=== PATIENT | female | born 1995 | race Caucasian/White ===

== ENCOUNTER → 2017-07-27 | Outpatient (CLI) | payer OTHER ==
[2017-07-27 10:43] LABS: CH 32.3; CHCM 34.3; HCT 44.8 % (34.0-46.0); HDW 2.47; HGB 14.2 gm/dL (11.4-16.0); MCH 30.1 pg (25.0-35.0); MCHC 31.7 g/dL (31.0-37.0); MCV 94.7 fL (80.0-100.0); RBC 4.73 m/uL (3.80-5.40); RDW 13.3 % (11.5-15.5); WBC 10.5 k/uL (4.0-11.0)
[2017-07-27 10:57] LABS: Glucose 116 mg/dL (74-99); Non-African American GFR(MDRD) >60 (>60 ml/min/1.73 sqM)
[2017-07-27 15:51] LABS: Treponemal Ab Non-Reactive (Non-Reactive)
[2017-07-28 06:16] LABS: Toxoplasma Antibody (IgG) <3.0 IU/mL (<7.2)
== END | disposition home or self-care (01) ==
LOC: LABWHC1 09:54
PROVIDERS: ATTEND Obstetrics & Gynecology
DX: Z34.01 Encounter for supervision of normal first pregnancy, first trimester (principal); Z3A.00 Weeks of gestation of pregnancy not specified
CPT/HCPCS: 36415; 82565; 82947; 85027; 86762; 86777; 86778; 86780; 86850; 86900; 86901; 87340; 87390

== ENCOUNTER → 2017-08-12 | Outpatient (CLI) | payer OTHER | END | disposition home or self-care (01) | LOC: LABWHC1 09:53 | PROVIDERS: ATTEND Obstetrics & Gynecology | DX: Z34.01 Encounter for supervision of normal first pregnancy, first trimester (principal) | CPT/HCPCS: 36415; 82950 ==

== ENCOUNTER 2017-12-31 18:30 | Outpatient (CLI) | payer OTHER ==
[2017-12-31 18:57] LABS: Amorphous Sediment,Urine Rare /hpf; Appearance,Urine Cloudy (Clear); Bilirubin,Urine Negative (Negative); Blood,Urine Negative (Negative); Color,Urine Yellow; Glucose,Urine (UA) Negative (Negative); Ketones,Urine Negative (Negative); Leukocyte Esterase,Urine Large (Negative); Mucus,Urine Rare /hpf; Nitrite,Urine Negative (Negative); Protein,Urine Negative (Negative); RBC,Urine 2 /hpf (0-5); Specific Gravity,Urine 1.017 (1.001-1.035); Squamous Epithelial Cell,Urine 11 /hpf (0-4); Urobilinogen,Urine <2.0 mg/dL (<2.0); WBC,Urine 42 /hpf (0-5)
[2017-12-31 19:46] VITALS: BP 118/78; PULSE 86; RESP 16; TEMP 97.3
--- NOTE | 2018-01-01 10:58 | P.MSEPDOC ---
Presenting Problems - Arrival Data Date of Arrival on Unit: 12/31/17 Time of Arrival on Unit: 18:40 Mode of Transport: Ambulatory - Complaint OB-Reason for Admission/Chief Complaint: Acute Nausea/Vomiting Medical History - Information : 1 Para: 0 Term: 0 : 0 Abortions: Spontaneous or Elective: 0 Number of Living Children: 0 - Gestational Age Gestational Age by PARADISE (wks/days): 30 Weeks and 3 Days Review of Systems - Review of Systems Constitutional: No problems Breast: No problems ENT: No problems Cardiovascular: No problems Respiratory: No problems Gastrointestinal: No problems Genitourinary: No problems Musculoskeletal: No problems Neurological: No problems Skin: No problems Vital Signs - Temperature Temperature: 97.3 F Temperature Source: Temporal Artery Scan - Pulse Right Brachial Pulse Rate: 86 Pulse Assessment Method: Automatic Cuff - Respirations Respiratory Rate: 16 Oxygen Delivery Method: Room Air O2 Sat by Pulse Oximetry: 97 - Blood Pressure Right Arm Blood Pressure: 118/78 Blood Pressure Mean: 91 Blood Pressure Source: Automatic Cuff Medical Screen Scoring (Pre) - Cervical Exam Dilation: 0 cm = 0 Effacement: Exam Deferred Membranes: Intact - Uterine Contractions Frequency: N/A - Maternal Vital Signs Maternal Temperature: N/A Maternal Blood Pressure: N/A Signs of Preeclampsia: N/A - Pain Assessment Pain Scale Used: Numeric (1 - 10) Pain Intensity: 0 - Assessment Baseline FHR: 150 Heart Rate - NICHD Category: Category I (Normal) = 0 NST: Reactive Position: N/A Station: N/A - Total Score Total Score (Pre): 0 - Level of Risk Level of Risk: Low (0-5) Physician Notification (Pre) - Physician Notified Physician Notified Date: 12/31/17 Physician Notified Time: 19:27 Physician/Practitioner Notifed:: Dr. Davis Spoke With: Dr. Davis New Order Received: Yes - Notification Comment Comment: Fredis Morales agree with NATHEN Disposition - Disposition Discharge Date: 12/31/17 Discharge Time: 19:45 I agree with the RN Medical Screening Exam: Yes Risk & Benefit of care provided described in d/c instruction: Yes Diagnosis: VOMITING OF , UNSPECIFIED
== END 2017-12-31 19:45 | disposition home or self-care (01) ==
LOC: FBPOP 18:30
PROVIDERS: ATTEND Obstetrics & Gynecology
DX: O21.9 Vomiting of pregnancy, unspecified (principal); Z3A.30 30 weeks gestation of pregnancy
CPT/HCPCS: 59025; 81001; 87086; G0463; 99213

== ENCOUNTER 2018-02-14 10:31 | Inpatient (IN) | payer OTHER ==
[2018-02-14 12:49] LABS: Amorphous Sediment,Urine Moderate /hpf; Appearance,Urine Turbid (Clear); Bacteria,Urine Rare /hpf; Bilirubin,Urine Negative (Negative); Blood,Urine Small (Negative); Color,Urine Yellow; Glucose,Urine (UA) 3+ (Negative); Ketones,Urine Negative (Negative); Leukocyte Esterase,Urine Negative (Negative); Mucus,Urine Rare /hpf; Nitrite,Urine Negative (Negative); PH, Urine 7.5 (5.0-8.0); Protein,Urine Negative (Negative); RBC,Urine 3 /hpf (0-5); Specific Gravity,Urine 1.012 (1.001-1.035); Squamous Epithelial Cell,Urine 1 /hpf (0-4); Urobilinogen,Urine <2.0 mg/dL (<2.0); WBC,Urine 4 /hpf (0-5)
[2018-02-14 12:53] LABS: ALT 30 U/L (9-52); AST 22 U/L (14-36); Blood Urea Nitrogen 6 mg/dL (7-17); LDH 471 U/L (313-618); Uric Acid 3.6 mg/dL (3.7-7.4)
--- NOTE | 2018-02-14 12:55 | P.MSEPDOC ---
Presenting Problems - Arrival Data Date of Arrival on Unit: 02/14/18 Time of Arrival on Unit: 10:31 Mode of Transport: Ambulatory - Complaint OB-Reason for Admission/Chief Complaint: Possible Onset of Labor Comment: elevated heart rate in office Medical History - Information : 1 Para: 0 Term: 0 : 0 Abortions: Spontaneous or Elective: 0 Number of Living Children: 0 - Gestational Age Gestational Age by PARADISE (wks/days): 36 Weeks and 6 Days Physician Notification (Pre) - Notification Comment Comment: pt sent over from office I agree with the RN Medical Screening Exam: Yes Risk & Benefit of care provided described in d/c instruction: Yes Diagnosis: FALSE LABOR BEFORE 37 COMPLETED WEEKS OF GEST, THIRD TRI
[2018-02-14 13:00] LABS: Basophils % (A) 0 %; Eosinophils % (A) 0 %; HCT 35.5 % (34.0-46.0); HGB 11.8 gm/dL (11.4-16.0); Lymphocytes # (A) 1.3 k/uL (1.0-4.8); Lymphocytes % (A) 13 %; MCH 28.6 pg (25.0-35.0); MCHC 33.3 g/dL (31.0-37.0); Mean Platelet Volume 7.9; Monocytes # (A) 0.6 k/uL (0-1.0); Monocytes % (A) 6 %; Neutrophils # (A) 7.8 k/uL (1.3-7.7); Neutrophils % (A) 79 %; Platelet Count 200 k/uL (150-450); RBC 4.13 m/uL (3.80-5.40); RDW 12.9 % (11.5-15.5); WBC 9.8 k/uL (3.8-10.6)
--- NOTE | 2018-02-14 13:01 | P.HPOB ---
History of Present Illness H&P Date: 02/14/18 Chief Complaint: Gestational hypertension. This patient is a pleasant 22-year-old 1 para 0 female estimated date of confinement 03/08/2018 estimated gestational age 36-6/7 weeks gestation who is admitted for my office initially for evaluation of tachycardia. Patient had a Doppler done in the office which showed a heart rate of 180. Patient also was having some cramping and cervix is felt to be 4 cm dilated. Patient's subsequent sent to labor and delivery for further evaluation. heart tones here are reactive and it is obvious that the 180 was just and acceleration. There is no evidence of tachycardia here. Cervix remained unchanged after one hour of observation. Of note however the patient was found to have elevated blood pressure initially on presentation 132/ 93. Patient's blood pressure has improved in the last hour however she did have another blood pressure elevated to 131/87. Preeclampsia labs are pending at the time of this dictation. Review of Systems Gastrointestinal: Reports heartburn Genitourinary: Reports Menstruation: Reports amenorrhea Past Medical History Past Medical History: No Reported History History of Any Multi-Drug Resistant Organisms: None Reported Past Surgical History: No Surgical Hx Reported Past Anesthesia/Blood Transfusion Reactions: No Reported Reaction Past Psychological History: No Psychological Hx Reported Smoking Status: Never smoker Past Alcohol Use History: None Reported Past Drug Use History: None Reported Medications and Allergies Home Medications Medication Instructions Recorded Confirmed Type Pnv,Calcium 72/Iron/Folic Acid 1 tab PO DAILY 12/31/17 02/14/18 History [ Plus Tablet] Allergies Allergy/AdvReac Type Severity Reaction Status Date / Time No Known Allergies Allergy Verified 02/14/18 10:44 Exam - Vital Signs Vital signs: Intake and Output 02/13/18 02/14/18 02/14/18 22:59 06:59 14:59 Other: Weight 68.492 kg - OBG Physical Exam Abdomen: bowel sounds normal, no diffuse tenderness, no bruit present, no guarding noted, no hepatomegaly, no splenomegaly, no mass Vulva: both: normal Vagina: normal moisture, no discharge Cervix: no lesion (Cervix in the office was 4 cm dilated and 80% effaced.), no discharge Uterus: enlarged (Fundal height is 37 cm) Results blood work shows she is O positive, rubella immune, RPR nonreactive, hepatitis B negative, HIV nonreactive, Glucola was normal, group B strep was negative. Most recent ultrasound done on January 31 showed the baby to be vertex 6 lbs. 8 oz. at the 86th percentile. Result Diagrams: 02/14/18 12:15 Abnormal Lab Results - Last 24 Hours (Table) 02/14/18 02/14/18 Range/Units 12:01 12:15 BUN 6 L (7-17) mg/dL Creatinine 0.43 L (0.52-1.04) mg/dL Uric Acid 3.6 L (3.7-7.4) mg/dL Urine Appearance Turbid H (Clear) Urine Glucose (UA) 3+ H (Negative) Urine Blood Small H (Negative) Amorphous Sediment Moderate H (None) /hpf Urine Bacteria Rare H (None) /hpf Urine Mucus Rare H (None) /hpf Assessment and Plan (1) Gestational hypertension Narrative/Plan: This is a pleasant 22-year-old 1 para 0 female 36-6/7 weeks gestation who was initially evaluated for tachycardia however this was found not to be the case. Upon evaluation however she has had several blood pressures that were elevated. At this time I'm going to check preeclampsia blood work, admit for serial blood pressures and observation, and if persistent blood pressure elevations will proceed with delivery tomorrow at 37 weeks per current recommendations guidelines. Patient I discussed management and she understands reason for admission and possible delivery. Current Visit: Yes Status: Acute Code(s): O13.9 - GESTATIONAL HTN W/O SIGNIFICANT PROTEINURIA, UNSP TRIMESTER SNOMED Code(s): 79041019
[2018-02-14 15:37] VITALS: BMI 25.9
--- NOTE | 2018-02-14 17:23 | P.PN ---
Progress Note - Text Progress Note Date: 02/14/18 Patient's heart tones are reactive. Patient has had 2 blood pressures that were 4 hours apart that are higher than 140/90. Preeclampsia labs were normal. I discussed with the patient and her partner current recommendations for delivery at 37 weeks due to her gestational hypertension. Plan is therefore to continue continuous monitoring and proceed with delivery tomorrow morning.
[2018-02-15] MEDS ORDERED: OXYTOCIN 10 UNIT/ML 1 ML VIAL IM PRN (05:15)
[2018-02-15] MEDS ORDERED: OXYTOCIN 20 UNITS/1000 ML NS 1,000 ML IV SCH ×2 (05:15→12:25)
[2018-02-15] MEDS ORDERED: LIDOCAINE 1% (PF) 10 MG/ML (30 ML SDV) SQ PRN (05:15)
[2018-02-15] MEDS ORDERED: TERBUTALINE 1 MG/ML VIAL SQ PRN (05:15)
[2018-02-15] MEDS ORDERED: LACTATED RINGERS 1,000 ML IV SCH (05:15)
[2018-02-15] MEDS ORDERED: CARBOPROST TROMETHAMINE 250 MCG/ML 1 ML AMP IM PRN (05:15)
[2018-02-15] MEDS ORDERED: METHYLERGONOVINE 0.2 MG/ML 1 ML AMP IM PRN (05:15)
[2018-02-15 05:35] LABS: Basophils % (A) 0 %; Eosinophils % (A) 0 %; HCT 37.8 % (34.0-46.0); HGB 12.6 gm/dL (11.4-16.0); Lymphocytes # (A) 1.9 k/uL (1.0-4.8); Lymphocytes % (A) 16 %; MCH 28.9 pg (25.0-35.0); MCHC 33.4 g/dL (31.0-37.0); MCV 86.4 fL (80.0-100.0); Mean Platelet Volume 7.2; Monocytes # (A) 0.7 k/uL (0-1.0); Monocytes % (A) 5 %; Neutrophils # (A) 9.3 k/uL (1.3-7.7); Neutrophils % (A) 77 %; Platelet Count 233 k/uL (150-450); RBC 4.38 m/uL (3.80-5.40); RDW 13.1 % (11.5-15.5); WBC 12.1 k/uL (3.8-10.6)
--- NOTE | 2018-02-15 06:06 | P.PN ---
Progress Note - Text Progress Note Date: 02/15/18 Patient rested overnight. Blood pressures were stable however have begun to elevate again this morning. No blood pressures are high enough to require treatment. Plan today is to proceed with induction for gestational hypertension. I did discuss induction process.
[2018-02-15] MEDS ORDERED: fentaNYL (PF) 50 MCG/ML 5 ML AMP ONE (08:34)
[2018-02-15] MEDS ORDERED: BUPIVACAINE (PF) 0.25% 30 ML VIAL ONE (08:34)
[2018-02-15] MEDS ORDERED: SODIUM CHLORIDE 0.9% 100 ML BAG ONE (08:34)
[2018-02-15] MEDS ORDERED: BENZOCAINE/MENTHOL SPRAY 1 GM/SPRAY AEROSOL TOPICAL PRN (12:25)
[2018-02-15] MEDS ORDERED: HYDROCORTISONE 2.5% RECTAL CREAM 30 GM TUBE RECTAL PRN (12:25)
[2018-02-15] MEDS ORDERED: ZOLPIDEM 5 MG TAB PO PRN (12:25)
[2018-02-15] MEDS ORDERED: WITCH HAZEL 1 EACH MED..PAD TOPICAL PRN (12:25)
[2018-02-15] MEDS ORDERED: LANOLIN CREAM 5 GM TUBE TOPICAL PRN (12:25)
[2018-02-15] MEDS ORDERED: ACETAMINOPHEN TAB 325 MG TAB PO PRN (12:25)
[2018-02-15] MEDS ORDERED: diphenhydrAMINE 25 MG CAP PO PRN (12:25)
[2018-02-15] MEDS ORDERED: BISACODYL 10 MG SUPP RECTAL PRN (12:25)
[2018-02-15] MEDS ORDERED: diphenhydrAMINE 50 MG/ML 1 ML VIAL IVP PRN (12:25)
[2018-02-15] MEDS ORDERED: SIMETHICONE 80 MG CHEWABLE PO PRN (12:25)
--- NOTE | 2018-02-15 12:25 | P.PROBDLV ---
Vaginal Delivery Note - . Vaginal Delivery Note: Normal vaginal delivery viable male Apgars 9 and 9 delivery time is 1159 hrs. Please see dictated H&P for intimate details of this patient's admission. Brief summary this is a pleasant 22-year-old 1 para 0 female admitted to labor and delivery for evaluation of tachycardia which was found to be normal however in the process of evaluation was noted to have elevated blood pressures. Patient had 2 blood pressures a were above the except range 4 hours apart and therefore recommendation proceed with delivery at this time. Patient is 4-5 cm dilated this morning has artificial rupture membranes for clear fluid labor is induced with Pitocin per protocol. Patient progresses and does get an epidural for pain control. Patient gets to complete pushes for approximately 40 minutes. Posterior perineum is supported we have controlled delivery of 's head over the intact perineum. Mouth and nares are bulb suctioned. There is a nuchal cord which is loose and then reduced. Have delivery the anterior posterior shoulder gentle downward traction rest this 's body. This is a vigorous viable male Apgars 9 and 9 delivery time is 1159 hrs. After delivery of the infant the umbilical cord is allowed to finish pulsating and then after about a minute or so is doubly clamped cut. is late on the mother's abdomen. Placenta is then spontaneously delivered intact. Estimated blood loss is 200 mL. There is a right labial laceration which is repaired with 3-0 Vicryl and a first-degree posterior perineal laceration which is repaired with 3-0 Vicryl as well. Excellent reapproximation is noted. All counts are correct 3. There are no complications. and mother are stable delivery room.
[2018-02-15] MEDS: SENNOSIDES-DOCUSATE SODIUM 1 EACH TAB PO SCH ×2 (14:04→21:16)
[2018-02-15] MEDS: IBUPROFEN 600 MG TAB PO PRN (15:05)
[2018-02-16] MEDS: IBUPROFEN 600 MG TAB PO PRN ×3 (06:16→23:59)
--- NOTE | 2018-02-16 06:21 | P.PNOBGVD ---
Subjective - Subjective Patient reports: Reports appetite normal, Reports voiding normally, Reports pain well controlled, Reports ambulating normally : doing well Objective - Latest Vital Signs Latest vital signs: Vital Signs Temp Pulse Resp BP 02/16/18 00:00 98.1 F 89 18 125/73 02/15/18 20:00 98.4 F 96 16 135/75 02/15/18 16:00 98.5 F 88 18 134/76 02/15/18 14:47 88 16 128/73 02/15/18 14:40 86 16 127/59 02/15/18 14:22 97.6 F 111 H 16 130/77 02/15/18 13:52 111 H 16 122/74 02/15/18 13:22 106 H 16 121/78 02/15/18 13:07 102 H 16 126/63 02/15/18 12:52 97 16 132/75 02/15/18 12:37 90 16 127/65 02/15/18 12:22 97.9 F 96 16 134/69 Intake and Output 02/15/18 02/15/18 02/16/18 14:59 22:59 06:59 Intake Total 1999 Balance 1999 Intake: IV 1999 Invasive Line 1 1999 Other: # Voids 1 - Exam Lungs: bilateral: normal Chest: Normal S1, Normal S2 Extremities: Present: normal Abdomen: Present: normal appearance, soft Uterus: Present: normal, firm Assessment and Plan Assessment: Post day #1. Patient is resting without complaints. Her baby needed to go to special care nursery is on high flow but is being weaned off today. Plan is to continue routine care most likely discharge home tomorrow. (1) Gestational hypertension Current Visit: Yes Status: Acute Code(s): O13.9 - GESTATIONAL HTN W/O SIGNIFICANT PROTEINURIA, UNSP TRIMESTER SNOMED Code(s): 50983110
[2018-02-16 06:47] LABS: Basophils % (A) 0 %; Eosinophils % (A) 0 %; HCT 29.9 % (34.0-46.0); Lymphocytes # (A) 1.4 k/uL (1.0-4.8); Lymphocytes % (A) 12 %; MCH 28.4 pg (25.0-35.0); MCHC 32.6 g/dL (31.0-37.0); MCV 87.3 fL (80.0-100.0); Mean Platelet Volume 7.5; Monocytes # (A) 0.6 k/uL (0-1.0); Monocytes % (A) 5 %; Neutrophils # (A) 9.5 k/uL (1.3-7.7); Neutrophils % (A) 81 %; Platelet Count 179 k/uL (150-450); RBC 3.42 m/uL (3.80-5.40); RDW 13.6 % (11.5-15.5); WBC 11.7 k/uL (3.8-10.6)
[2018-02-16 07:11] LABS: HGB 9.7 gm/dL (11.4-16.0)
[2018-02-16] MEDS: SENNOSIDES-DOCUSATE SODIUM 1 EACH TAB PO SCH ×2 (07:51→19:26)
--- NOTE | 2018-02-17 05:53 | P.PNOBGVD ---
Subjective - Subjective Patient reports: Reports appetite normal, Reports voiding normally, Reports pain well controlled, Reports ambulating normally : doing well Objective - Latest Vital Signs Latest vital signs: Vital Signs Temp Pulse Resp BP Pulse Ox 02/17/18 00:00 98.0 F 84 16 107/73 99 02/16/18 15:28 98.1 F 76 17 123/75 02/16/18 09:20 97.9 F 115 H 16 132/75 02/16/18 07:56 98.1 F 72 16 121/72 Intake and Output 02/16/18 02/16/18 02/17/18 14:59 22:59 06:59 Other: Voiding Method Toilet - Exam Lungs: bilateral: normal Chest: Normal S1, Normal S2 Extremities: Present: normal Abdomen: Present: normal appearance, soft Uterus: Present: normal, firm - Labs Labs: Abnormal Lab Results - Last 24 Hours (Table) 02/16/18 Range/Units 06:29 WBC 11.7 H (3.8-10.6) k/uL RBC 3.42 L (3.80-5.40) m/uL Hgb 9.7 L D (11.4-16.0) gm/dL Hct 29.9 L (34.0-46.0) % Neutrophils # 9.5 H (1.3-7.7) k/uL Assessment and Plan Assessment: day #2. Patient is resting without complaints. Vital signs are stable she's afebrile. Uterus is firm nontender she's having normal lochia. My impression this is a normal post course. Plan is to continue routine care and discharge home later today. (1) Gestational hypertension Current Visit: Yes Status: Acute Code(s): O13.9 - GESTATIONAL HTN W/O SIGNIFICANT PROTEINURIA, UNSP TRIMESTER SNOMED Code(s): 82334414
--- NOTE | 2018-02-17 05:57 | P.DS ---
Providers Date of admission: 02/16/18 08:29 Expected date of discharge: 02/17/18 Attending physician: John Jay Primary care physician: Stated None - Discharge Diagnosis(es) (1) Gestational hypertension Current Visit: Yes Status: Acute Hospital Course: Please see dictated H&P for intimate details of this patient's admission. Brief summary this pleasant 22-year-old 1 para 0 female 37-0/7 weeks gestation admitted to labor and delivery for evaluation of hypertension. Patient is diagnosed with gestational hypertension induced at 37 weeks per recommendations. Patient was on have a vaginal delivery viable male . Please see dictated delivery note. day #2 she is felt to be stable for discharge home follow up with me in 6 weeks. Procedures: Induction of labor normal vaginal delivery. Patient Condition at Discharge: Good Plan - Discharge Summary New Discharge Prescriptions: New Ibuprofen [Motrin] 600 mg PO Q6HR PRN #40 tab PRN Reason: Mild Pain Or Fever >= 100.5 No Action Pnv,Calcium 72/Iron/Folic Acid [ Plus Tablet] 1 tab PO DAILY Discharge Medication List Pnv,Calcium 72/Iron/Folic Acid [ Plus Tablet] 1 tab PO DAILY 12/31/17 [ History] Ibuprofen [Motrin] 600 mg PO Q6HR PRN #40 tab 02/17/18 [Rx] Follow up Appointment(s)/Referral(s): John Jay MD [STAFF PHYSICIAN] - 6 Weeks Patient Instructions/Handouts: Vaginal Delivery (DC) Activity/Diet/Wound Care/Special Instructions: No intercourse or anything per vagina for 6 weeks. Please call if any fever, chills, excessive vaginal bleeding, and/or abdominal pain. Discharge Disposition: HOME SELF-CARE
[2018-02-17] MEDS: SENNOSIDES-DOCUSATE SODIUM 1 EACH TAB PO SCH (08:00)
[2018-02-17] MEDS: IBUPROFEN 600 MG TAB PO PRN (10:25)
[2018-02-17 12:34] VITALS: BP 128/78; PULSE 81; RESP 18; TEMP 98.9
== END 2018-02-17 13:00 | disposition home or self-care (01) | DRG 775 ==
LOC: FBPOP 10:31 → 4FBP 12:54 → OBSVTOIN 02-16 08:29
PROVIDERS: ADMIT Obstetrics & Gynecology; ATTEND Obstetrics & Gynecology
PROC: 10E0XZZ Delivery of Products of Conception, External Approach (ICD-10-PCS; principal; 2018-02-15)
PROC: 0HQ9XZZ Repair Perineum Skin, External Approach (ICD-10-PCS; 2018-02-15)
PROC: 10907ZC Drainage of Amniotic Fluid, Therapeutic from Products of Conception, Via Natural or Artificial Opening (ICD-10-PCS; 2018-02-15)
PROC: 3E033VJ Introduction of Other Hormone into Peripheral Vein, Percutaneous Approach (ICD-10-PCS; 2018-02-15)
DX: O13.4 Gestational [pregnancy-induced] hypertension without significant proteinuria, complicating childbirth (principal); Z37.0 Single live birth; O69.81X0 Labor and delivery complicated by cord around neck, without compression, not applicable or unspecified; O70.0 First degree perineal laceration during delivery; Z3A.37 37 weeks gestation of pregnancy
CPT/HCPCS: 59025; 81001; 82565; 83615; 84450; 84460; 84520; 84550; 85025; 88307; 99215

== ENCOUNTER → 2018-08-26 | Outpatient (CLI) | payer OTHER ==
--- NOTE | 2018-08-26 18:31 | US ---
EXAMINATION TYPE: Transabdominal DATE OF EXAM: 01/04/18 COMPARISON: NONE CLINICAL HISTORY: O46.91 spotting first trimester, Z36 confirm dates. Positive beta-hCG test. EXAM PERFORMED: Transabdominal (TA) EXAM MEASUREMENTS: GESTATIONAL AGE / DATING Physician Established: Not yet established Dates by LMP: (7 weeks/0 days) EDC: 04/14/19 Dates by First Scan: No previous this is first scan Dates by Current Scan for: (6 weeks/4 days) EDC: 04/17/19 MATERNAL ANATOMY Uterus: 8.5 x 5.2 x 5.5cm Right Ovary: 2.0 x 1.2 x 1.1cm Left Ovary: 1.3 x 1.3 x 1.3cm Post CDS / Adnexa: wnl Presence of free fluid: no Presence of subchorionic bleed: no GESTATION / SURVEY CRL: .7 (6 weeks/4 days) Yolk Sac (normal less than 6mm): 1mm Heart Rate: 126 bpm Rhythm: Normal IUP: Viable IUP Date of LMP: 07/08/18 Beta HcG (if available): Not available at this time Single live intrauterine gestation is seen as gestational sac, yolk sac, pole are present. No f ree fluid is seen in pelvic cul-de-sac. Both ovaries are present. No suspicious adnexal lesions are seen. IMPRESSION: Single live intrauterine gestation is confirmed, mean crown-rump length is 0.7 cm corresponding to 6 week 4 day old fetus.
== END | disposition home or self-care (01) ==
LOC: RADUSMAIN 17:48
PROVIDERS: ATTEND Obstetrics & Gynecology
DX: Z36.9 Encounter for antenatal screening, unspecified (principal)
CPT/HCPCS: 76801

== ENCOUNTER 2019-03-14 01:28 | Inpatient (IN) | payer OTHER ==
[2019-03-14] MEDS ORDERED: LIDOCAINE 0.5% (PF) 5 MG/ML (50 ML SDV) SQ PRN (01:40)
[2019-03-14] MEDS ORDERED: TERBUTALINE 1 MG/ML VIAL SQ PRN (01:40)
[2019-03-14] MEDS ORDERED: CARBOPROST TROMETHAMINE 250 MCG/ML 1 ML AMP IM PRN (01:40)
[2019-03-14] MEDS ORDERED: OXYTOCIN 10 UNIT/ML 1 ML VIAL IM PRN (01:40)
[2019-03-14] MEDS ORDERED: METHYLERGONOVINE 0.2 MG/ML 1 ML AMP IM PRN (01:40)
[2019-03-14 02:00] LABS: Basophils % (A) 0 %; Eosinophils # (A) 0.1 k/uL (0-0.7); Eosinophils % (A) 1 %; HCT 35.9 % (34.0-46.0); HGB 11.4 gm/dL (11.4-16.0); Hypochromasia Moderate; Lymphocytes # (A) 1.8 k/uL (1.0-4.8); Lymphocytes % (A) 15 %; MCH 26.1 pg (25.0-35.0); MCHC 31.7 g/dL (31.0-37.0); MCV 82.4 fL (80.0-100.0); Mean Platelet Volume 7.3; Monocytes # (A) 0.7 k/uL (0-1.0); Monocytes % (A) 6 %; Neutrophils # (A) 9.6 k/uL (1.3-7.7); Neutrophils % (A) 77 %; Platelet Count 232 k/uL (150-450); RBC 4.36 m/uL (3.80-5.40); RDW 14.4 % (11.5-15.5); WBC 12.4 k/uL (3.8-10.6)
--- NOTE | 2019-03-14 02:23 | P.HPOB ---
History of Present Illness H&P Date: 03/14/19 Chief Complaint: normal labor 23 year old presents at 35 weeks 4 days in labor and with SROM. Her cervix was completely dilated when she presented to triage and her water broke in triage, nurses say they saw meconium-stained fluid. heart tones 130s with moderate variability. Review of Systems All systems: negative Constitutional: Denies chills, Denies fever Eyes: denies blurred vision, denies pain Ears, nose, mouth and throat: Denies headache, Denies sore throat Cardiovascular: Denies chest pain, Denies shortness of breath Respiratory: Denies cough Gastrointestinal: Denies abdominal pain, Denies diarrhea, Denies nausea, Denies vomiting Genitourinary: Denies dysuria, Denies hematuria Musculoskeletal: Denies myalgias Integumentary: Denies pruritus, Denies rash Neurological: Denies numbness, Denies weakness Psychiatric: Denies anxiety, Denies depression Endocrine: Denies fatigue, Denies weight change Past Medical History Past Medical History: No Reported History Additional Past Medical History / Comment(s): Obstetric history: She's had one previous vaginal delivery induced at 37 weeks for gestational hypertension. This is her second and she's had care with Dr. Jay. Blood type O+, rubella immune, RPR nonreactive, this B-, HIV nonreactive, toxoplasmosis negative. History of Any Multi-Drug Resistant Organisms: None Reported Past Surgical History: No Surgical Hx Reported Past Anesthesia/Blood Transfusion Reactions: No Reported Reaction Past Psychological History: No Psychological Hx Reported Smoking Status: Never smoker Past Alcohol Use History: None Reported Past Drug Use History: None Reported - Past Family History Mother Family Medical History: Diabetes Mellitus, Hypertension Medications and Allergies Home Medications Medication Instructions Recorded Confirmed Type Pnv,Calcium 72/Iron/Folic Acid 1 tab PO DAILY 12/31/17 03/14/19 History [ Plus Tablet] Ibuprofen [Motrin] 600 mg PO Q6HR PRN #40 tab 02/17/18 03/14/19 Rx Allergies Allergy/AdvReac Type Severity Reaction Status Date / Time No Known Allergies Allergy Verified 03/14/19 01:37 Exam Osteopathic Statement: *. No significant issues noted on an osteopathic structural exam other than those noted in the History and Physical/Consult. Vital Signs Temp Pulse Resp BP 03/14/19 01:57 97.2 F L 106 H 20 132/58 Intake and Output 03/13/19 03/13/19 03/14/19 14:59 22:59 06:59 Other: Weight 71.668 kg Heart: Regular rate and rhythm Lungs: Clear to auscultation bilaterally Abdomen: Soft, nontender Extremities: Negative Homans sign Results Result Diagrams: 03/14/19 01:42 Abnormal Lab Results - Last 24 Hours (Table) 03/14/19 Range/Units 01:42 WBC 12.4 H (3.8-10.6) k/uL Neutrophils # 9.6 H (1.3-7.7) k/uL Assessment and Plan (1) Spontaneous rupture of membranes Current Visit: Yes Status: Acute Code(s): SPB2324 - SNOMED Code(s): 790457912 (2) Normal labor Current Visit: Yes Status: Acute Code(s): O80 - ENCOUNTER FOR FULL-TERM UNCOMPLICATED DELIVERY; Z37.9 - OUTCOME OF DELIVERY, UNSPECIFIED SNOMED Code(s): 02610439 Plan: 1. Admit to family place 2. Expectant management 3. Anticipate normal vaginal delivery
--- NOTE | 2019-03-14 02:28 | P.PROBDLV ---
Vaginal Delivery Note - . Vaginal Delivery Note: 23-year-old presented at 35 weeks and 4 days in active labor with spontaneous rupture of membranes. Her cervix was completely dilated when she presented to triage she is -1 station. Her contractions are every 3-5 minutes and heart tones 130s with moderate variability. She pushed, and delivered a viable male infant over intact perineum. Head delivered OA, anterior shoulder delivered gentle downward guidance for by posterior shoulder and rest of body. Nose mouth bulb suctioned and the fluid looked clear at this point, cord clamped and cut and placed mother's abdomen. Apgars 9, 9, weight 6 lbs. 1 oz. Placenta delivered spontaneously, intact with three-vessel cord soon thereafter. Vagina, cervix, and perineum were inspected. No lacerations noted. Estimated blood loss 200 mL. Soon after she did have some uterine atony and vaginal ble eding, I did give her Methergine which resolved this issue. Mother and baby in stable condition.
[2019-03-14] MEDS ORDERED: OXYTOCIN 20 UNITS/1000 ML NS 1,000 ML IV SCH (03:15)
[2019-03-14 03:24] VITALS: BMI 27.1
[2019-03-14] MEDS ORDERED: LANOLIN CREAM 5 GM TUBE TOPICAL PRN (03:31)
[2019-03-14] MEDS ORDERED: diphenhydrAMINE 50 MG/ML 1 ML VIAL IVP PRN ×2 (03:31)
[2019-03-14] MEDS ORDERED: ZOLPIDEM 5 MG TAB PO PRN (03:31)
[2019-03-14] MEDS ORDERED: BENZOCAINE/MENTHOL SPRAY 1 GM/SPRAY AEROSOL TOPICAL PRN (03:31)
[2019-03-14] MEDS ORDERED: ACETAMINOPHEN TAB 325 MG TAB PO PRN (03:31)
[2019-03-14] MEDS ORDERED: WITCH HAZEL 1 EACH MED..PAD TOPICAL PRN (03:31)
[2019-03-14] MEDS ORDERED: diphenhydrAMINE 50 MG CAP PO PRN (03:31)
[2019-03-14] MEDS ORDERED: diphenhydrAMINE 25 MG CAP PO PRN (03:31)
[2019-03-14] MEDS ORDERED: SIMETHICONE 80 MG CHEWABLE PO PRN (03:31)
[2019-03-14] MEDS ORDERED: HYDROCORTISONE 2.5% RECTAL CREAM 30 GM TUBE RECTAL PRN (03:31)
[2019-03-14] MEDS: IBUPROFEN 600 MG TAB PO PRN ×2 (03:56→13:56)
[2019-03-14] MEDS: SENNOSIDES-DOCUSATE SODIUM 1 EACH TAB PO SCH ×2 (15:49→23:53)
[2019-03-14] MEDS: LACTATED RINGERS 1,000 ML IV SCH (18:44)
[2019-03-14 23:53] VITALS: RESP 14
--- NOTE | 2019-03-15 07:40 | P.DS ---
Providers Date of admission: 03/14/19 01:56 Expected date of discharge: 03/15/19 Attending physician: John Jay Primary care physician: John Jay - Discharge Diagnosis(es) (1) Spontaneous rupture of membranes Current Visit: Yes Status: Resolved (2) Normal labor Current Visit: Yes Status: Resolved Hospital Course: Patient presented in active labor and with spontaneous rupture membranes at 35 weeks and 3 days. She underwent a normal vaginal delivery. Her course was uncomplicated. She will be discharged home day #1 in stable condition to follow-up with Dr Norman in 6 weeks. Plan - Discharge Summary New Discharge Prescriptions: No Action Pnv,Calcium 72/Iron/Folic Acid [ Plus Tablet] 1 tab PO DAILY Ibuprofen [Motrin] 600 mg PO Q6HR PRN #40 tab PRN Reason: Mild Pain Or Fever >= 100.5 Discharge Medication List Pnv,Calcium 72/Iron/Folic Acid [ Plus Tablet] 1 tab PO DAILY 12/31/17 [History] Ibuprofen [Motrin] 600 mg PO Q6HR PRN #40 tab 02/17/18 [Rx] Follow up Appointment(s)/Referral(s): Doug Norman DO [Doctor of Osteopathic Medicine] - 6 Weeks Discharge Disposition: HOME SELF-CARE
[2019-03-15] MEDS: IBUPROFEN 600 MG TAB PO PRN (07:54)
[2019-03-15] MEDS: SENNOSIDES-DOCUSATE SODIUM 1 EACH TAB PO SCH (07:54)
[2019-03-15 08:53] VITALS: BP 139/75; PULSE 76; TEMP 98.1
== END 2019-03-15 09:50 | disposition home or self-care (01) | DRG 806 ==
LOC: FBPOP 01:28 → 4FBP 01:56
PROVIDERS: ADMIT Obstetrics & Gynecology; ATTEND Obstetrics & Gynecology
PROC: 10E0XZZ Delivery of Products of Conception, External Approach (ICD-10-PCS; principal; 2019-03-14)
DX: O77.0 Labor and delivery complicated by meconium in amniotic fluid (principal); O72.1 Other immediate postpartum hemorrhage; Z37.0 Single live birth; Z3A.35 35 weeks gestation of pregnancy; Z82.49 Family history of ischemic heart disease and other diseases of the circulatory system; Z83.3 Family history of diabetes mellitus
CPT/HCPCS: 85025; 86850; 86900; 86901; 88307; 99213